=== PATIENT | female | born 1935 | race Caucasian/White ===

== ENCOUNTER 2017-12-04 09:36 | Outpatient (CLI) | payer MEDICARE, OTHER, SELFPAY ==
[2017-12-04] VITALS (7 sets, daily range): BP systolic 113–167; BP diastolic 53–87; PULSE 72–82; RESP 16–23; TEMP 36.1; O2SAT 96–100
--- NOTE | 2017-12-04 09:39 | DI.RAD.S_ITS ---
PROCEDURE: PAIN C/T FACET INJ/BLK 1ST L INDICATIONS: SPONDYLOSIS FINDINGS: Fluoroscopic spot filming was performed to verify placement of spinal needles at the left C6-7 and left C7-T1 level(s), as labeled on the films. Appropriate location(s) of the needle tip(s) was confirmed by injection of iodinated contrast. IMPRESSION: Successful needle tip localization for 2 level left facette steroid injection. Dictated by: Domenic Boykin M.D. on 12/04/2017 at 14:06 Approved by: Domenic Boykin M.D. on 12/04/2017 at 14:07
--- NOTE | 2017-12-04 10:09 | PM.PROC.1 ---
Procedures Date/Time Date of procedure: 12/04/17 Time of procedure: 10:09 General Procedure description: PREOP DIAGNOSIS 1. FACET ARTHROPATHY 2. AXIAL NECK PAIN POST OP DIAGNOSIS 1. FACET ARTHROPATHY 2. AXIAL NECK PAIN PROCEDURES 1. FLUOROSCOPICALLY GUIDED, CONTRAST-CONTROLLED LEFT C6/7, C7/T1 FACET JOINT INJECTIONS WITH CONSCIOUS SEDATION. PHYSICIAN: Jorge Schulte DO MOHAN Yesika is referred by TK Will for treatment of Axial Neck Pain DESCRIPTION OF PROCEDURE Fluoroscopically guided, contrast-controlled left C4/5, C5/6 facet joint injections with conscious sedation. Following denial of allergy and review of potential side effects and complications, including, but not necessarily limited to, infection, allergic reaction, local tissue breakdown, stroke, temporary or permanent nerve injury and paralysis, the patient indicated that the patient understood and agreed to proceed. An informed consent document was signed by the patient, witnessed by a nurse, and placed in the patient's chart. Additionally, other treatment options including medications, modalities, and physical therapy were reviewed with the patient. After review of previous anaesthesic history and IV conscious sedation the patient was deemed safe to proceed with todays procedure with IV conscious sedation as ASA class II designation. Safety time-out was performed to confirm patient ID, procedure to be performed and site of procedure. IV sedation was accomplished with a combination of 4mg was administered by the RN after DO order, titrated to patient comfort during the course of the procedure while the patient remained responsive to all verbal commands In the prone position, following sterile prep and drape of the cervical spine region, the posterior aspect of the right C4/5, C5/6 facet joints were identified fluoroscopically. The skin was anesthetized via a 25-gauge 1.5-inch needle with 1% lidocaine solution into the corresponding facet joints. At this point, a 25-gauge 2.5-inch spinal needle was atraumatically introduced and advanced under fluoroscopic guidance into the corresponding facet joints. Following negative aspiration, injections of approximately 0.2-cc of Isovue 200 confirmed interarticular placement without vascular uptake. At this point, a total of 1 cc including 0.5 cc or 5 mg of dexamethasone combined with 0.5 cc of 1% lidocaine solution was injected without complication into each of the corresponding facet joints. The patient tolerated the procedure well without signs or symptoms of complications prior to transfer to the recovery area continued monitoring without incident. The patient was then transferred to the recovery area where they were observed for an appropriate period of time after the injection. The patient reported a VAS score of 7 prior to the procedure and a post-procedure VAS of 0. Total Fluoroscopy Time: 20.5 seconds Total Conscious Sedation Time: 24 min POST OP INSTRUCTIONS They were provided a Pain Log to continue to record their response to the target-specific procedure prior to their follow-up visit with their referring physician. Additionally, specific post-injection care instructions and a contact number to our office were provided if concerns arise regarding possible complications associated with the procedure are suspected. Jorge Schulte, Complications: none
--- NOTE | 2017-12-04 10:12 | P.PCN_ITS ---
Procedures Date/Time Date of procedure: 12/04/17 Time of procedure: 10:09 General Procedure description: PREOP DIAGNOSIS 1. FACET ARTHROPATHY 2. AXIAL NECK PAIN POST OP DIAGNOSIS 1. FACET ARTHROPATHY 2. AXIAL NECK PAIN PROCEDURES 1. FLUOROSCOPICALLY GUIDED, CONTRAST-CONTROLLED LEFT C6/7, C7/T1 FACET JOINT INJECTIONS WITH CONSCIOUS SEDATION. PHYSICIAN: Jorge Schulte DO MOHAN Yesika is referred by TK Will for treatment of Axial Neck Pain DESCRIPTION OF PROCEDURE Fluoroscopically guided, contrast-controlled left C4/5, C5/6 facet joint injections with conscious sedation. Following denial of allergy and review of potential side effects and complications, including, but not necessarily limited to, infection, allergic reaction, local tissue breakdown, stroke, temporary or permanent nerve injury and paralysis, the patient indicated that the patient understood and agreed to proceed. An informed consent document was signed by the patient, witnessed by a nurse, and placed in the patient's chart. Additionally, other treatment options including medications, modalities, and physical therapy were reviewed with the patient. After review of previous anaesthesic history and IV conscious sedation the patient was deemed safe to proceed with todays procedure with IV conscious sedation as ASA class II designation. Safety time-out was performed to confirm patient ID, procedure to be performed and site of procedure. IV sedation was accomplished with a combination of 4mg was administered by the RN after DO order , titrated to patient comfort during the course of the procedure while the patient remained responsive to all verbal commands In the prone position, following sterile prep and drape of the cervical spine region, the posterior aspect of the right C4/5, C5/6 facet joints were identified fluoroscopically. The skin was anesthetized via a 25-gauge 1.5-inch needle with 1% lidocaine solution into the corresponding facet joints. At this point, a 25-gauge 2.5-inch spinal needle was atraumatically introduced and advanced under fluoroscopic guidance into the corresponding facet joints. Following negative aspiration, injections of approximately 0.2-cc of Isovue 200 confirmed interarticular placement without vascular uptake. At this point, a total of 1 cc including 0.5 cc or 5 mg of dexamethasone combined with 0.5 cc of 1% lidocaine solution was injected without complication into each of the corresponding facet joints. The patient tolerated the procedure well without signs or symptoms of complications prior to transfer to the recovery area continued monitoring without incident. The patient was then transferred to the recovery area where they were observed for an appropriate period of time after the injection. The patient reported a VAS score of 7 prior to the procedure and a post- procedure VAS of 0. Total Fluoroscopy Time: 20.5 seconds Total Conscious Sedation Time: 24 min POST OP INSTRUCTIONS They were provided a Pain Log to continue to record their response to the target -specific procedure prior to their follow-up visit with their referring physician. Additionally, specific post-injection care instructions and a contact number to our office were provided if concerns arise regarding possible complications associated with the procedure are suspected. Jorge Schulte, Complications: none
[2017-12-04] MEDS: MIDAZOLAM 5 MG/5 ML VIAL IV (10:25)
[2017-12-04] MEDS: IOPAMIDOL 15 ML VIAL 3 ML INJ (10:30)
[2017-12-04] MEDS: DEXAMETHASONE 10 MG/ML VIAL 30 MG INJ (10:31)
[2017-12-04] MEDS: BUPIVACAINE 0.25% (PF) VIAL 30 ML INJ (10:31)
== END 2017-12-04 11:07 | disposition home or self-care (01) ==
LOC: RAD 09:38
PROVIDERS: Family Provider Physician Assistant Medical; PCP Physician Assistant Medical; Visit Provider Physical Medicine & Rehabilitation
DX: M47.812 Spondylosis without myelopathy or radiculopathy, cervical region (principal); M54.2 Cervicalgia
CPT/HCPCS: 64490; 99152; J1100; J2250

== ENCOUNTER → 2021-10-17 14:42 | Outpatient (CLI) | payer MEDICARE, OTHER, SELFPAY ==
--- NOTE | 2021-10-17 | DI.ECHO.S_ITS ---
[facility]---------+ [facility] +---------+ : : [address] : : : : [phone] : : : : Phone: [phone]+ Echocardiogram Report + + :Name: SAMARIA MACARIO Study Date: 10/17/2021 Height: 64.5 in: :[facility] ReadingLocation: Weight: 118 lb : : Gender: Female BSA: 1.6 m2 : :: 1935 Age: 86 yrs BP: 161/73 mmHg: :Reason For Study: HYPERTENSION : :Ordering Physician: IVY, : :MILENA Performed By: Pretty Gatica : :Referring: MILENA HAYNES : + + Interpretation Summary The left ventricle is normal in size and wall thickness. The ejection fraction is estimated to be 50-55%. The right ventricle is normal in size and function. There is mild to moderate mitral regurgitation. There is mild to moderate aortic regurgitation. There is mild tricuspid regurgitation. The right ventricular systolic pressure is estimated to be at least 25 mmHg based on an estimated right atrial pressure of 3 mm Hg. The IVC is of normal diameter and collapses greater than 50% with a sniff. This suggests a low right atrial pressure of 3 mm Hg. Procedure: A two-dimensional transthoracic echocardiogram with color flow and Doppler was performed. The study quality was technically adequate. There is no prior echocardiogram noted for this patient. The patient was in sinus rhythm with heart rates between 66-73 bpm during the exam. Left Ventricle: The left ventricle is normal in size and wall thickness. There is no thrombus. The ejection fraction is estimated to be 50-55%. There are no focal wall motion abnormalities. MV E/A: 0.75 Med Peak E' Chalo: 5.1 cm/sec E/E' med: 17.2. Right Ventricle: The right ventricle is normal in size and function. Atria: The left atrium is moderately dilated. Right atrial size is normal. There is no Doppler evidence for an interatrial shunt. Mitral Valve: The mitral valve leaflets appear mildly thickened, but open well. There is mild mitral annular calcification. The mitral valve leaflets are mildly calcified. There is mild to moderate mitral regurgitation. Aortic Valve: The aortic valve is trileaflet. The aortic valve opens well. The aortic valve is mildly calcified. There is no aortic valve stenosis. There is mild to moderate aortic regurgitation. Tricuspid Valve: The tricuspid valve is normal. There is mild tricuspid regurgitation. The right ventricular systolic pressure is estimated to be at least 25 mmHg based on an estimated right atrial pressure of 3 mm Hg. Pulmonic Valve: The pulmonic valve leaflets are thin and pliable; valve motion is normal. There is no pulmonic valvular regurgitation. Great Vessels: The aortic root is normal size. The dimensions of the ascending aorta are normal. The IVC is of normal diameter and collapses greater than 50% with a sniff. This suggests a low right atrial pressure of 3 mm Hg. Pericardium/ Pleura There is no pericardial effusion. There is an anterior echo-free space consistent with a fat pad. There is no pleural effusion. MMode/2D Measurements & Calculations LVIDd: 5.0 cm LVOT diam: 2.2 cm LVIDs: 3.4 cm Ao root diam: 3.0 cm FS: 32.6 % asc Aorta Diam: 3.0 cm EPSS: 1.2 cm Ao Arch Diam (Prox Trans): 2.4 cm IVSd: 0.83 cm LVPWd: 0.71 cm LV cosby. diameter/BSA (cm/m^2): 3.2 LV sys. diameter/BSA (cm/m^2): 2.1 LA A2 area: 21.6 cm2 RA long axis: 4.9 cm LA A4 area: 20.1 cm2 RA area: 14.9 cm2 LA length (vol): 5.2 cm RA vol: 38.7 ml LA vol: 70.6 ml RA : 24.6 ml/m2 LA vol index: 44.9 ml/m2 IVC diam: 0.95 cm RVD1 (basal): 3.1 cm RVD2 (mid): 2.4 cm TAPSE: 1.6 cm Doppler Measurements & Calculations Ao V2 max: 170.3 cm/sec LVOT Max Chalo: 71.8 cm/sec Ao V2 mean: 133.3 cm/sec LV V1 max P.1 mmHg Ao max P.6 mmHg LV V1 VTI: 18.9 cm Ao mean P.5 mmHg KELSIE(I,D): 1.6 cm2 Ao V2 VTI: 42.1 cm KELSIE(V,D): 1.5 cm2 sev ratio: 0.45 KELSIE indexed to BSA (cm^2/m^2): 1.0 AI P1/2t: 460.0 msec AI dec slope: 277.7 cm/sec2 MV E max chalo: 88.0 cm/sec TR max chalo: 236.6 cm/sec MV A max chalo: 118.0 cm/sec TR max P.4 mmHg MV E/A: 0.75 PA V2 max: 85.5 cm/sec Med Peak E' Chalo: 5.1 cm/sec PA V2 mean: 57.4 cm/sec E/E' med: 17.2 PA mean P.5 mmHg Lat Peak E' Chalo: 6.8 cm/sec PA Accel Time: 0.11 sec E/E' lat: 12.9 E/e' average: 15.0 MV dec time: 0.25 sec SV(LVOT): 69.3 ml Reading Physician:06:00 PM
== END ==
PROVIDERS: Family Provider Physician Assistant Medical; PCP Physician Assistant Medical; Referring Provider Internal Medicine Cardiovascular Disease; Visit Provider Internal Medicine Cardiovascular Disease
DX: I10 Essential (primary) hypertension (principal); I08.3 Combined rheumatic disorders of mitral, aortic and tricuspid valves
CPT/HCPCS: 93306

== ENCOUNTER 2022-04-30 08:49 | Day surgery (SDC) | payer MEDICARE, OTHER, SELFPAY ==
--- NOTE | 2022-04-30 | PATH_ITS ---
[facility] Accession Number: [id number] No. of containers..03 Tissue . 01 Material submitted: . PART A: gastrointestinal site - RANDOM GASTRIC BIOPSY PART B: colon - COLONIC EROSION BIOPSY PART C: colon - DESCENDING COLON POLYP . 01 Diagnosis: A. Stomach, Random Biopsies: Body-type mucosa with mild chronic gastritis. Negative for Helicobacter by immunohistochemistry. Negative for intestinal metaplasia. Negative for dysplasia and malignancy. . B. Colon, Erosion, Biopsy: Mildly active colitis. Please see comment. Negative for granulomas, dysplasia, and malignancy. . C. Descending Colon, Polyp, Biopsy: Tubular adenoma, two fragments. [facility] 05/07/2022 1415 Local . 01 Comment: B. The colonic erosion biopsy shows mildly active colitis, including cryptitis. Features of chronic inflammation, including branched crypt architecture or lymphoplasmacytosis are not identified. No obvious viral cytopathic effects or parasitic organisms are seen. The differential diagnosis includes bowel preparation effects, infection, medication-related mucosal injury, diverticular disease-associated colitis/trauma/prolapse, and idiopathic inflammatory bowel disease. . 01 Electronically signed: . Khushbu Pitts MD, Pathologist NPI- [id number] . 01 Gross description: . Part A: RANDOM GASTRIC BIOPSY: Received in formalin is 1 fragment(s) of cho, soft tissue measuring 0.4 x 0.2 x 0.2 cm submitted entirely in 1 cassette(s) Part B: COLONIC EROSION BIOPSY: Received in formalin is 1 fragment(s) of cho, soft tissue measuring 0.2 x 0.1 x 0.1 cm submitted entirely in 1 cassette(s) Part C: DESCENDING COLON POLYP: Received in formalin are 2 fragment(s) of cho, soft tissue measuring 0.5 x 0.5 x 0.4 cm to 0.2 x 0.1 x 0.1 cm submitted entirely in 1 cassette(s) /CPE 05/01/2022 0642 Local . 01 Microscopic: . An immunohistochemical stain was performed to evaluate for Helicobacter organisms and is negative. The control stain showed appropriate reactivity. . * This test was developed and its performance characteristics determined by [employer] It has not been cleared or approved by the U.S. Food and Drug Administration. The FDA has determined that such clearance or approval is not necessary. This test is used for clinical purposes. It should not be regarded as investigational or for research. . 01 Pathologist provided ICD-10: D12.4, K62.5, R93.3 . 01 CPT . 672991, 064629, 188837, C35700 Specimen Comment: A courtesy copy of this report has been sent to [phone] Performed at: 01 [facility] [address] [place] [address], [place], [place] [id number] MD Marvin Whitman MD Phone: [phone]
[2022-04-30 09:16] VITALS: BP 147/58; PULSE 88; RESP 16; TEMP 36.8; O2SAT 98; BMI 20.5
[2022-04-30] MEDS: LACTATED RINGERS 1,000 ML 84 ML IV (09:27)
--- NOTE | 2022-04-30 09:48 | PM.HP.1 ---
History of Present Illness History of Present Illness Date Patient Seen: 04/30/22 Time Patient Seen: 09:48 Chief complaint: Colonoscopy Narrative: I reviewed my recent office note. The patient has not had any further bleeding symptoms. She denies abdominal distention nausea or vomiting. She has chronic diminished appetite and an element of early satiety. Patient History Family & Social History Social History: household members spouse Tobacco & Substance use: Smoking Status Never smoker alcohol intake frequency holiday/special occasion Substance Use Type does not use Meds Home Medications and Allergies Home Medications Medication Instructions Recorded Confirmed Type atenolol 50 mg tablet 50 mg PO DAILY 01/02/18 04/30/22 History lisinopril 5 mg tablet 5 mg PO DAILY 01/02/18 04/30/22 History pravastatin 40 mg tablet 40 mg PO DAILY 01/02/18 04/30/22 History zinc 50 mg tablet (Chelated Zinc) 50 mg PO DAILY 01/02/18 04/30/22 History cholecalciferol (vitamin D3) 25 2,000 unit PO DAILY 03/02/19 03/02/19 History mcg (1,000 unit) capsule coenzyme Q10 [Ultra CoQ10] PO DAILY 03/02/19 03/02/19 History colestipol 5 gram oral granules 1 gram PO DAILY 03/02/19 03/02/19 History diclofenac sodium 1 % topical gel 2 g topical QID arthritis pain 03/02/19 03/02/19 Rx #100 grams furosemide 20 mg PO .every other day 03/02/19 04/30/22 History mecobalamin (vitamin B12) PO DAILY 03/02/19 03/02/19 History potassium 550 mg PO DAILY 03/02/19 04/30/22 History probiotic PO DAILY 03/02/19 03/02/19 History clopidogrel 75 mg tablet (Plavix) 75 mg PO DAILY 04/30/22 04/30/22 History Allergies Allergy/AdvReac Type Severity Reaction Status Date / Time Sulfa (Sulfonamide Allergy Mild Verified 04/30/22 09:06 Antibiotics) Review of Systems Review of Systems ROS: Yes All systems reviewed with the patient and are negative except as otherwise documented Exam Vital Signs (past 8 hours): - 04/30/22 09:16 Temperature 98.2 F Pulse Rate 88 Respiratory Rate 16 Blood Pressure 147/58 H Pulse Oximetry 98 Oxygen Delivery Method Room Air Oxygen Delivery Method Room Air Const General: cooperative HENMT Head: normal to inspection Eyes General: appearance normal, both eyes and all related structures Neck Neck: normal visual inspection Chest Chest: normal inspection of the chest Resp Effort & Inspection: normal respiratory effort Cardio Rate: regular rate GI Inspection: normal to inspection Skin General: no rashes or lesions noted Neuro General: patient alert and patient awake Extrem General: normal to inspection and no pedal edema Psych Appearance: grossly normal Assessment & Plan Assessment & Plan narrative: 86-year-old female with chronic early satiety, history of duodenal stricture, rectal bleeding. EGD and colonoscopy are pursued today. Time Spent With Patient Critical Care time: I spent a total of [] minutes of critical care time on this patient's care today; this time is exclusive of procedural time.
--- NOTE | 2022-04-30 09:49 | PM.PREOP ---
Pre-operative Note Interval Note History & Physical reviewed/Exam performed by Physician: Yes Changes to H&P: No ASA Class (for procedural sedation): III
--- NOTE | 2022-04-30 10:37 | P.OP.EGD&C_ITS ---
Operative Date/Time/Diagnoses Date of procedure: 04/30/22 Time of procedure: 10:38 Pre-op diagnosis: Chronic early satiety, established duodenal stricture, remote rectal bleeding. Post-op diagnosis: same Procedure & Clinicians Study performed: EGD with biopsies, colonoscopy with biopsies and hot snare polypectomy Same procedure as scheduled: Yes Indications: Chronic early satiety, established duodenal stricture, remote rectal bleeding. Surgeon: Law Hawkins Procedure Notes SCOAP/Timeout: Done Procedure in detail: After the risks and benefits were explained, written and verbal informed consent was obtained. The patient was brought into the procedure room and placed into the left lateral decubitus position. Please see anesthesia notes for sedation details. The scope was introduced into the mouth through the bite block and advanced under direct visualization to the 2nd portion of the duodenum. The scope was slowly withdrawn carefully examining the mucosa for any defects or lesions. Retroflexed views were accomplished in the stomach. The stomach was decompressed, the scope was then removed from the patient who tolerated the procedure well. A digital rectal examination was then accomplished, the colonoscope was introduced into the rectum and advanced to the cecum as identified by the appendiceal orifice and ileocecal valve. The scope was slowly withdrawn to carefully examine the mucosa for any defects or lesions. Multiple direct views were made through the dentate line for exclusion of pathology the colon was decompressed the scope was removed from the patient who tolerated the procedure well. Pediatric colonoscope Bowel prep adequate Scope withdrawal time: 14 minutes Sedation minutes: 35 Complications: none Impression: 1. Duodenum: Between the 1st and 2nd portion of the duodenum there was a slightly erythematous mildly inflammatory smooth stenosis. This did not impede passage of the endoscope through into D2. I did not appreciate any features of this stricture suggestive of active neoplasia. I elected to forego repeating biopsies here. It did not appear stenosed enough to warrant any endoscopic intervention in the context of how well the patient is doing clinically. 2. Stomach: Mild diffuse gastropathy and biopsies were therefore acquired for ex clusion of H pylori or other pathology. Otherwise retroflexed views of the LES were unremarkable. There was no evidence of any gastric outlet obstruction. No ulcers no mass lesions. 3. Esophagus: The squamocolumnar junction correlated with the top of the gastric folds. GEJ was at 39 cm from the incisors. No acute erosive changes no strictures no mass lesions. 4. Colon: The terminal aspect of the terminal ileum appeared entirely normal with well preserved villi. There was a very subtle small nonbleeding AVM in the cecum that was left alone. There were some scattered erosive features throughout the region of splenic flexure and descending colon. These might have represented the sequelae of chronic ischemia. Biopsies were accomplished for histopathologic analysis. In the mid to distal descending there was an approximately 8-9 mm sessile polyp removed with hot snare. No additional pathology was appreciated throughout. Grade 1 internal hemorrhoids were appreciated. Endoscopic diagnosis 1. Smooth mildly inflammatory chronic duodenal stenosis 2. Mild gastropathy 3. Nonbleeding small cecal AVM 4. Colon polyp 5. Subtle diffuse erosive features in and about the region of splenic flexure/descending colon 6. Grade 1 internal hemorrhoids Post-procedure Plan for aftercare: 1. Await histopathology. 2. Plavix can be re-initiated starting tomorrow. 3. Follow up in primary care as before. 5. Follow up GI clinic as needed. Disposition: PACU
[2022-04-30 10:41] VITALS: BP 106/43; PULSE 80; RESP 18; TEMP 36.1; O2SAT 96
[2022-04-30 10:46] VITALS: BP 106/43; PULSE 86; RESP 16; TEMP 36.4; O2SAT 94
[2022-04-30 10:51] VITALS: BP 123/48; PULSE 86; RESP 14; TEMP 36.2; O2SAT 94
[2022-04-30 11:01] VITALS: BP 134/58; PULSE 85; RESP 16; TEMP 36.2; O2SAT 94
== END 2022-04-30 11:08 | disposition home or self-care (01) ==
PROVIDERS: Family Provider Physician Assistant Medical; PCP Physician Assistant Medical; Referring Provider Internal Medicine Gastroenterology; Visit Provider Internal Medicine Gastroenterology
PROC: 0DJD8ZZ Inspection of Lower Intestinal Tract, Via Natural or Artificial Opening Endoscopic (ICD-10-PCS; CPT 45378; principal; 2022-04-30 10:00)
PROC: 0DJ08ZZ Inspection of Upper Intestinal Tract, Via Natural or Artificial Opening Endoscopic (ICD-10-PCS; CPT 43235; 2022-04-30 10:00)
DX: R68.81 Early satiety (principal); Z87.19 Personal history of other diseases of the digestive system; R63.0 Anorexia; K31.5 Obstruction of duodenum; K31.9 Disease of stomach and duodenum, unspecified; Q27.39 Arteriovenous malformation, other site; K64.0 First degree hemorrhoids; K29.50 Unspecified chronic gastritis without bleeding; D12.4 Benign neoplasm of descending colon; K52.9 Noninfective gastroenteritis and colitis, unspecified
CPT/HCPCS: 45385; 45380; 43239; J2704